=== PATIENT | female | born 1995 | race African-American/Black ===

== ENCOUNTER 2024-08-24 00:55 | Emergency (ER) | payer MEDICAID, OTHER ==
[~2024-08-24] VITALS: Ht 162.6 cm; Wt 68.2 kg
[2024-08-24 00:59] VITALS: TEMP 98
[2024-08-24] MEDS: IPRATROPIUM BROMIDE 0.5 MG/2.5 ML NEB SOLUTION NEB ONE (01:38)
[2024-08-24] MEDS: ALBUTEROL SULFATE 2.5 MG/0.5 ML NEB SOLUTION NEB ONE (01:38)
[2024-08-24 01:40] VITALS: PULSE 73; RESP 16; O2SAT 100
[2024-08-24 01:43] LABS: COVID AG,FIA SOURCE NASAL SWAB
[2024-08-24 01:45] LABS: BASOPHILS % (AUTO) 0.8 % (0.0-2.0); EOSINOPHILS % (AUTO) 2.4 % (1.0-6.0); HEMATOCRIT 37.2 % (36-46); HEMOGLOBIN 11.8 g/dL (12.0-16.0); LYMPHOCYTES # (AUTO) 2.5 K/uL (1.0-4.8); LYMPHOCYTES % (AUTO) 54.3 % (22.0-44.0); MEAN CORPUSCULAR HEMOGLOBIN 23.2 pg (26.0-34.0); MEAN CORPUSCULAR HGB CONC 31.6 G/dL (31.0-37.0); MEAN CORPUSCULAR VOLUME 74 fL (80-100); MONOCYTES # (AUTO) 0.3 K/uL (0.1-1.0); MONOCYTES % (AUTO) 6.7 % (2.0-9.0); NEUTROPHILS # (AUTO) 1.6 K/uL (1.8-7.7); NEUTROPHILS % (AUTO) 35.8 % (40.0-70.0); PLATELET COUNT (AUTO) 285 K/uL (150-450); RED BLOOD CELL COUNT(AUTO) 5.07 MIL/uL (4.00-5.20); RED CELL DISTRIBUTION WIDTH 14.2 % (11.5-14.5); WHITE BLOOD COUNT (AUTO) 4.6 K/uL (4.5-11.0)
[2024-08-24 01:47] LABS: SARS-COV2 (COVID) ANTIGEN,FIA Negative (Negative)
[2024-08-24 01:56] LABS: ANION GAP 14 mmol/L (8-16); CALCIUM, TOTAL 8.9 mg/dL (8.8-10.5); CARBON DIOXIDE 21 mmol/L (22-29); CHLORIDE 101 mmol/L (98-107); CREATININE 0.79 mg/dL (0.60-1.30); GLOMERULAR FILTR. RATE CALC > 60 mL/min (>60); GLUCOSE,RANDOM 83 mg/dL (70-110); POTASSIUM 3.7 mmol/L (3.5-5.1); SODIUM SERUM 136 mmol/L (136-145); UREA NITROGEN, BLOOD 10 mg/dL (7-18)
[2024-08-24 02:00] VITALS: PULSE 75; RESP 16; O2SAT 100
[2024-08-24 02:03] LABS: INFLUENZA TYPE A NEGATIVE FOR TYPE A (NEGATIVE); INFLUENZA TYPE B NEGATIVE FOR TYPE B (NEGATIVE)
[2024-08-24 02:05] LABS: TROPONIN I-HIGH SENSITIVITY 5 ng/L (<51)
[2024-08-24 02:43] VITALS: BP 128/91; PULSE 81; RESP 17; O2SAT 100
[2024-08-24] MEDS ORDERED: ALBU18HF12 IH (03:14)
== END 2024-08-24 03:28 | disposition home or self-care (01) ==
LOC: EMS 00:55
DX: R06.00 Dyspnea, unspecified (principal); Z20.822 Contact with and (suspected) exposure to COVID-19
CPT/HCPCS: 71045; 80048; 84484; 84703; 85025; 87804; 93005; 94640; 99285; 36415-L1; 36415-TC; J7613